=== PATIENT | male | born 1985 | race African-American/Black ===

== ENCOUNTER 2018-02-12 19:02 | Emergency (ER) | payer SELFPAY ==
[~2018-02-12] VITALS: Ht 188 cm; Wt 113.4 kg
[2018-02-12 19:30] VITALS: BP 129/81
[2018-02-12] MEDS ORDERED: Lidocaine 1% MPF 10mg/ml 5ml INJ ONE (20:15)
[2018-02-12] MEDS ORDERED: Azithromycin 250mg tab ORAL ONE (20:15)
--- NOTE | 2018-02-12 20:32 | Emergency Room Report ---
History of Present Illness General Chief Complaint: Allergic Reaction Source: Patient (Andres Yusuf) Present Illness HPI 32-year-old male patient presents the ER with multiple complaints. Patient reports pain with urination, denies penile discharge. Patient reports concern for STI, states he had recent sexual activity 1 week ago. States he wears a condom but he is still concerned for STI. Patient denies testicular swelling. Denies penile pain. Denies back pain. Denies abdominal pain. Denies fever, chest pain, shortness of breath, abdominal pain. Patient also reports rash all over his body. Patient reports rash on his upper arms and legs abdomen. States he recently used a new soap. Patient reports a history of eczema. States he has not had eczema recently or taken any medication recently. Patient also reports rash on his genitals and feet. Patient reports extremely pruritic. Denies drainage. Denies vesicles. Denies blisters. Reports symptoms on his feet have been present for "a while". Denies history of diabetes. (Andres Yusuf) Allergies: Coded Allergies: No Known Allergies (Unverified , 02/12/18) Patient History Past Medical History: see triage record Reviewed Nursing Documentation: PMH: Agreed; PSxH: Agreed (Andres Yusuf) Nursing Documentation-PMH Past Medical History: No Stated History (Andres Yusuf) Review of Systems All Other Systems: negative except mentioned in HPI (Andres Yusuf) Physical Exam Vital Signs Date Time Temp Pulse Resp B/P (MAP) Pulse Ox O2 Delivery O2 Flow Rate FiO2 02/12/18 19:18 98.8 75 16 129/81 96 Room Air Sp02 EP Interpretation: reviewed, normal General Appearance: well appearing, no apparent distress, alert, GCS 15, non- toxic Head: normocephalic, atraumatic Eyes: bilateral eye normal inspection, bilateral eye PERRL ENT: hearing grossly normal, normal pharynx, no angioedema, normal voice, uvula midline, moist mucus membranes Neck: full range of motion Respiratory: lungs clear, normal breath sounds, no rhonchi, no respiratory distress, no accessory muscle use, no wheezing, speaking full sentences Cardiovascular #1: regular rate, rhythm, no edema Musculoskeletal: back normal, digits/nails normal, gait/station normal, normal range of motion, non-tender Neurologic: alert, oriented x3, responsive, motor strength/tone normal, sensory intact Psychiatric: mood/affect normal Skin: rash - Eczematous rash on hands and fingers, maculopapular rash on bilateral upper extremities, no surrounding erythema or edema, no central clearing or scaling, other - Rash on genitals and inner thighs consistent with tinea cruris, no papules, no vesicles, no blisters, no crusting, no erythema or edema; rash on dorsum of feet consistent with tinea pedis, no moccasin appearance (Andres Yusuf) Medical Decision Making PA Attestation Dr. Saha is my supervising Physician whom patient management has been discussed with. (Adnres Yusuf) Diagnostic Impression: Primary Impression: Contact dermatitis Qualified Codes: L25.9 - Unspecified contact dermatitis, unspecified cause Additional Impressions: Tinea pedis Qualified Codes: B35.3 - Tinea pedis Tinea cruris Dysuria Encounter for assessment of sexually transmitted disease exposure ER Course Pt. presents to the ED c/o rash, dysuria and encounter for STI screening. Ddx considered but are not limited to atopic dermatitis, scabies, shingles, hives, urticaria, angiodema, allergic reaction, impetigo, tinea, balantitis, gonorrhea, chlamydia, UTI,. Vital signs: are WNL, pt. is afebrile Ordered medication. ER COURSE On physical exam, patient has a rash on upper extremities and hands consistent with eczema. Provided patient with dose of prednisone in the ER for itching symptoms. Rash on feet consistent with tinea pedis, will provide patient with clotrimazole for infection symptoms. Rash on groin and genitals consistent with jock itch, will provide patient with clotrimazole for rash. No vesicles or blisters consistent with herpes infection. Advised patient follow-up with STI clinic and dermatology for further treatment and referral as needed. Take Claritin during the day and Benadryl at night for itching symptoms. Seen and evaluated by Dr. Saha, agrees with assessment and treatment plan. UA results show no signs of infection. Advised patient to take Tylenol for pain. Discuss referral to for pain symptoms. Provided patient with Rocephin and Azithromycin in the ER. Informed patient medications will cover for gonorrhea and chlamydia, needs further follow-up evaluation and possible treatment of other sexual transmitted infections. Advised to use safe sex practices including but not limited to use of condoms. Avoid sexual activity for the next 2 weeks. Instructed patient to follow up with STI clinic and/or PCP for STI evaluation and further treatment as necessary. Instructed patient to inform partners of needs for evaluation and treatment of possible infections. DISCHARGE: At this time pt. is stable for d/c to home. Patient resting comfortably, in no acute distress, nontoxic appearing. Will provide printed patient care instructions, and any necessary prescriptions. Care plan and follow up instructions have been discussed with the patient prior to discharge. Patient provided with list of healthcare clinics to establish primary care physician. Patient instructed to follow-up with primary care provider in 3 - 5 days. Patient questions asked and answered. ER precautions given. Patient instructed to return to ER immediately for any new or worsening of symptoms including but not limited to increasing SOB, persistent fever. - Please note that this Emergency Department Report was dictated using [employer] engineer helper technology software, occasionally this can lead to erroneous entry secondary to interpretation by the dictation equipment. Labs Test 02/12/18 19:30 Urine Color Pale yellow Urine Appearance Clear Urine pH 6 (4.5-8.0) Urine Specific [place] 1.020 (1.005-1.035) Urine Protein Negative (NEGATIVE) Urine Glucose (UA) Negative (NEGATIVE) Urine Ketones Negative (NEGATIVE) Urine Blood Negative (NEGATIVE) Urine Nitrite Negative (NEGATIVE) Urine Bilirubin Negative (NEGATIVE) Urine Urobilinogen 1 MG/DL (0.0-1.0) Urine Leukocyte Esterase 1+ (NEGATIVE) Urine RBC 0 /HPF (0 - 0) Urine WBC 0-2 /HPF (0 - 0) Urine Squamous Epithelial Cells Occasional /LPF Urine Bacteria None /HPF (NONE) (Andres Yusuf P.A.) ER Course I examined this patient and obtained a full history. I agree with the assessment and treatment plan. (Tor Saha MD) Last Vital Signs Date Time Temp Pulse Resp B/P (MAP) Pulse Ox O2 Delivery O2 Flow Rate FiO2 02/12/18 19:30 98.8 78 16 129/81 96 Room Air (Andres Yusuf P.A.) Disposition: HOME, SELF-CARE Condition: Stable Scripts Prednisone* (PREDNISONE*) 20 Mg Tablet 40 MG ORAL DAILY for 4 Days, #8 TAB Prov: Andres Yusuf. 02/12/18 Clotrimazole* (LOTRIMIN*) 15 Gm Cream..g. 1 APPLIC TOPIC TWICE A DAY, #15 GM Prov: Andres Yusuf. 02/12/18 Triamcinolone Acet (Triamcinolone Acetonide) 15 Gm Cream..g. 15 GM APPLIC BID, #15 GM Prov: Andres Yusuf. 02/12/18 Patient Instructions: Athlete's Foot, [id number], Contact Dermatitis, Easy-to -Read, Dysuria, Jock Itch, [id number], Sexually Transmitted Disease, Easy-to- Read Additional Instructions: Followup with primary care provider in 3 -5 days. Request referral to dermatology as needed. Do not scratch or itch. Apply cool compresses to affected area. Discontinue new soaps and detergents. Wash all clothes and bedding. Take medications as directed. Do not apply topical steroid medication to face or skin creases. SE Benadryl drowsiness, do not take prior to drinking, driving, operating heavy machinery. Take Claritin during the day and Benadryl at night for itching symptoms. Patient questions asked and answered. ER precautions given, patient instructed to return to ER immediately for any new or worsening of symptoms. [facility] Followup with primary care provider and followup with STI clinic for further evaluation and treatment. Alert sexual partners for need for evaluation and treatment. Wear condoms during sex. Avoid sexual activity for 2 weeks. Drink plenty of fluids. Patient questions asked and answered. ER precautions given, patient instructed to return to ER immediately for any new or worsening of symptoms. Andres Yusuf Feb 12, 2018 20:32 Tor Saha MD Feb 13, 2018 03:35
[2018-02-12 20:51] LABS: APPEARANCE,URINE CLEAR; BILIRUBIN, URINE NEGATIVE (NEGATIVE); COLOR,URINE PALE YELLOW; GLUCOSE, URINE (UA) NEGATIVE (NEGATIVE); KETONES,URINE NEGATIVE (NEGATIVE); LEUKOCYTE ESTERASE ,URINE 1+ (NEGATIVE); NITRITE,URINE NEGATIVE (NEGATIVE); PH,URINE 6 (4.5-8.0); PROTEIN,URINE NEGATIVE (NEGATIVE); UROBILINOGEN,URINE 1 MG/DL (0.0-1.0)
[2018-02-12] MEDS ORDERED: PREDNISONE20 MG ORAL (21:03)
[2018-02-12] MEDS ORDERED: KENALOG 0.5% CR15 GM APPLIC (21:03)
[2018-02-12] MEDS ORDERED: CLOTRIMAZOLE15 GM TOPIC (21:03)
[2018-02-12 21:25] VITALS: BP 129/81
== END 2018-02-12 21:26 | disposition home or self-care (01) ==
LOC: EMR 20:00
DX: L25.9 Unspecified contact dermatitis, unspecified cause (principal); B35.3 Tinea pedis; R30.0 Dysuria; Z20.2 Contact with and (suspected) exposure to infections with a predominantly sexual mode of transmission
CPT/HCPCS: 81003; 96372; 96374; 99284; J0696; J7512